=== PATIENT | female | born 1960 | race Caucasian/White ===

== ENCOUNTER → 2017-09-21 | Outpatient (CLI) | payer BC ==
[~2017-09-21] MED LIST: ASPIR 8181 M1; ASPIRIN81 M2 PO; DILAUDID2 MG PO; EPIPEN ADU0.3 MG/0.3 IM; K-DUR20 MEQ PO; NUVIGIL250 MG; PEPCID40 MG PO; PLAVIX75 MG; PLAVIX75 MG PO; PREDNISONE20 MG PO; PREMARIN0.625 MG PO; PRILOSEC40 MG PO; PROVENTIL HFA6.7 GM IH; ZOCOR10 MG PO; ZOFRAN ODT4 MG PO; ZYRTEC10 M3 PO
== END | disposition home or self-care (01) ==
LOC: CDC 11:15
DX: Z01.810 Encounter for preprocedural cardiovascular examination (principal); M50.30 Other cervical disc degeneration, unspecified cervical region
CPT/HCPCS: 93000